=== PATIENT | female | born 1965 | race Caucasian/White ===

== ENCOUNTER → 2021-11-17 | Outpatient (CLI) | payer OTHER ==
[~2021-11-17] MED LIST: AMLO10TA80 MT; ATOR20TA65 MT; CYCL25PO15 MT; GABA-532 MT; HYDR12.54 MT; LOSA50TA41 MT; OMEP20TA2 MT
== END | disposition home or self-care (01) ==
LOC: LAB 12:59
PROVIDERS: ATTEND Neurological Surgery
DX: Z01.812 Encounter for preprocedural laboratory examination (principal); Z20.822 Contact with and (suspected) exposure to COVID-19
CPT/HCPCS: 87426

== ENCOUNTER 2021-11-20 05:29 | Inpatient (IN) | payer MEDICAID, OTHER ==
[2021-11-20] VITALS (46 sets, daily range): BP systolic 73–148; BP diastolic 32–86
[~2021-11-20] VITALS: Ht 167.6 cm; Wt 105.8 kg
[2021-11-20] MEDS ORDERED: SODIUM CHLORIDE 0.9% 1,000 ML IV SCH (05:30)
[2021-11-20] MEDS ORDERED: AMLO10TA80 MT (06:32)
[2021-11-20] MEDS ORDERED: LOSA50TA41 MT (06:32)
[2021-11-20] MEDS ORDERED: ATOR20TA65 MT (06:32)
[2021-11-20] MEDS ORDERED: GABA-532 MT (06:32)
[2021-11-20] MEDS ORDERED: OMEP20TA2 MT (06:32)
[2021-11-20] MEDS ORDERED: LIDOCAINE HCL 1% 20ML VIAL (Pyxis) INJ ONE (06:54)
[2021-11-20] MEDS ORDERED: GENTAMICIN SULF 40MG/ML 2ML VIAL ONE (06:55)
[2021-11-20] MEDS ORDERED: EPINEPHRINE 1:1000 1 MG/ML AMP ONE (06:56)
[2021-11-20] MEDS ORDERED: THROMBIN (BOVINE) 5000 UNITS/VIAL TOP ONE (06:56)
[2021-11-20] MEDS ORDERED: LIDOCAINE HCL/EPINEPHRINE 1%-EPI 1:100,000 30 ML VIAL INFIL ONE (07:24)
[2021-11-20] MEDS ORDERED: HYDROMORPHONE HCL/PF 2MG/ML (OR) ONE (07:25)
[2021-11-20] MEDS ORDERED: ROCURONIUM BROMIDE 10MG/ML VIAL 5ML IV ONE (07:25)
[2021-11-20] MEDS ORDERED: DEXAMETHASONE 4MG/ML 1ML VIAL ONE (07:26)
[2021-11-20] MEDS ORDERED: ALBUMIN HUMAN 25GM/100ML (25%) IV ONE (08:06)
[2021-11-20] MEDS ORDERED: CALCIUM CHLORIDE 1GM/10ML SYR IV ONE ×2 (08:06→09:10)
[2021-11-20] MEDS ORDERED: GLYCOPYRROLATE 0.2 MG/ML 2ML VIAL ONE (09:50)
[2021-11-20] MEDS ORDERED: NEOSTIGMINE METHYLSULFATE 1MG/ML 10 ML VIAL ONE (09:50)
[2021-11-20] MEDS ORDERED: MORPHINE SULFATE 4 MG/ML CPJ (NOT FOR IM USE) IV PRN (10:00)
[2021-11-20] MEDS ORDERED: NALOXONE HCL 0.4MG/ML VIAL IV PRN (10:00)
[2021-11-20] MEDS ORDERED: HYDROMORPHONE PCA 10MG/50ML IV PRN (10:15)
[2021-11-20] MEDS ORDERED: NALOXONE INJ IV PRN (10:15)
[2021-11-20] MEDS: ONDANSETRON INJ IV PRN ×3 (10:52→20:14)
[2021-11-20] MEDS: DEXT 5%/LACTATED RINGERS 1,000 ML IV SCH ×2 (10:52→21:18)
[2021-11-20] MEDS ORDERED: HYDR12.54 MT (11:03)
[2021-11-20] MEDS ORDERED: CYCL25PO15 MT (11:03)
[2021-11-20] MEDS ORDERED: BACITRACIN 15GM TUBE TOP ONE (11:10)
[2021-11-20] MEDS: DEXAMETHASONE 4MG/ML 1ML VIAL IV SCH ×3 (12:02→23:37)
[2021-11-20] MEDS ORDERED: IPRATROPIUM/ALBUTEROL 0.5-3(2.5)MG/3ML NEB HHN PRN (12:30)
[2021-11-20] MEDS: CEFAZOLIN 1000MG PREMIX 50 ML IV SCH ×2 (12:32→21:18)
[2021-11-20] MEDS ORDERED: CEFAZOLIN SODIUM 1000MG/VIAL IV SCH (14:00)
[2021-11-20] MEDS: MORPHINE SULFATE 2 MG/ML CPJ (NOT FOR IM USE) IV PRN ×4 (14:10→22:21)
[2021-11-20] MEDS: DIPHENHYDRAMINE INJ IV PRN ×2 (18:33→22:53)
[2021-11-20] MEDS: NICARDIPINE 100 MG in SODIUM CHLORIDE 0.9% 60 ML IV PRN (23:38)
[2021-11-21] VITALS (86 sets, daily range): BP systolic 87–153; BP diastolic 26–108
[2021-11-21] MEDS: MORPHINE SULFATE 2 MG/ML CPJ (NOT FOR IM USE) IV PRN ×5 (01:36→20:02)
[2021-11-21] MEDS: DIPHENHYDRAMINE INJ IV PRN ×4 (04:12→20:01)
[2021-11-21 05:18] LABS: HEMATOCRIT. 31.2 % (36.0-48.0); HEMOGLOBIN. 10.1 g/dL (12.0-16.0); LYMPHOCYTES % 11.4 % (20.0-50.0); MEAN CORPUSCULAR HEMOGLOBIN 29.4 pg (28.0-32.0); MEAN CORPUSCULAR VOLUME 90.9 fL (81.0-99.0); MEAN PLATELET VOLUME 9.4 fl (7.4-10.4); MONOCYTES % 3.2 % (2.0-8.0); NEUTROPHILS % 85.4 % (40.0-76.0); PLATELET 231 x1000/uL (130-400); RED BLOOD CELL COUNT 3.44 mill/uL (4.2-5.4); RED CELL DISTRIBUTION WIDTH 15.4 % (11.6-14.6)
[2021-11-21] MEDS: CEFAZOLIN 1000MG PREMIX 50 ML IV SCH ×2 (05:41→15:00)
[2021-11-21] MEDS: DEXAMETHASONE 4MG/ML 1ML VIAL IV SCH ×2 (05:41→12:21)
[2021-11-21] MEDS: OMEPRAZOLE 20MG CAPSULE EXTENDED RELEASE PO SCH (05:43)
[2021-11-21] MEDS: NICARDIPINE 100 MG in SODIUM CHLORIDE 0.9% 60 ML IV PRN (05:47)
[2021-11-21] MEDS: DEXT 5%/LACTATED RINGERS 1,000 ML IV SCH ×2 (06:00→16:42)
[2021-11-21 06:06] LABS: CHLORIDE 101 mEq/L (98-107)
[2021-11-21 06:22] LABS: PHOSPHORUS 4.5 mg/dL (2.5-4.9)
[2021-11-21] MEDS: ONDANSETRON INJ IV PRN (08:01)
[2021-11-21] MEDS ORDERED: PROCHLORPERAZINE 10MG/2ML VIAL IM ONE (10:00)
[2021-11-21] MEDS ORDERED: PROCHLORPERAZINE 10MG/2ML VIAL IV PRN (10:00)
[2021-11-21] MEDS: DOCUSATE SODIUM 100MG CAPSULE PO PRN ×2 (10:51→20:01)
[2021-11-21] MEDS: LOSARTAN POTASSIUM 50 MG TABLET PO SCH (16:44)
[2021-11-21] MEDS: AMLODIPINE 10MG TABLET PO SCH (16:44)
[2021-11-21] MEDS: MAGNESIUM/ALUMINUM HYDROXIDE/SIMETHICONE 30ML UDC PO PRN (21:27)
[2021-11-21] MEDS: IPRATROPIUM/ALBUTEROL 0.5-3(2.5)MG/3ML NEB HHN SCH (23:20)
[2021-11-22] VITALS (46 sets, daily range): BP systolic 85–142; BP diastolic 34–87
[2021-11-22] MEDS: DIPHENHYDRAMINE INJ IV PRN ×2 (00:22→08:30)
[2021-11-22] MEDS: MORPHINE SULFATE 2 MG/ML CPJ (NOT FOR IM USE) IV PRN ×6 (00:23→20:40)
[2021-11-22] MEDS: DEXT 5%/LACTATED RINGERS 1,000 ML IV SCH ×2 (02:33→08:32)
[2021-11-22 05:15] LABS: HEMATOCRIT. 35.2 % (36.0-48.0); HEMOGLOBIN. 11.4 g/dL (12.0-16.0); LYMPHOCYTES % 8.1 % (20.0-50.0); MEAN CORPUSCULAR HEMOGLOBIN 29.2 pg (28.0-32.0); MEAN CORPUSCULAR VOLUME 89.8 fL (81.0-99.0); MEAN PLATELET VOLUME 9.4 fl (7.4-10.4); MONOCYTES % 5.8 % (2.0-8.0); NEUTROPHILS % 86.1 % (40.0-76.0); PLATELET 260 x1000/uL (130-400); RED BLOOD CELL COUNT 3.91 mill/uL (4.2-5.4); RED CELL DISTRIBUTION WIDTH 15.4 % (11.6-14.6)
[2021-11-22 05:28] LABS: CHLORIDE 103 mEq/L (98-107)
[2021-11-22] MEDS: OMEPRAZOLE 20MG CAPSULE EXTENDED RELEASE PO SCH (05:33)
[2021-11-22] MEDS: LOSARTAN POTASSIUM 50 MG TABLET PO SCH (08:31)
[2021-11-22] MEDS: AMLODIPINE 10MG TABLET PO SCH (08:31)
[2021-11-22] MEDS: IPRATROPIUM/ALBUTEROL 0.5-3(2.5)MG/3ML NEB HHN SCH (09:15)
[2021-11-22] MEDS: PROCHLORPERAZINE 10MG/2ML VIAL IV PRN (11:39)
[2021-11-22] MEDS ORDERED: AMLODIPINE 5MG TABLET PO SCH (13:08)
[2021-11-22] MEDS: GUAIFENESIN 600MG ER TABLET PO SCH ×2 (15:22→20:30)
[2021-11-22] MEDS: AMLODIPINE 5MG TABLET PO SCH ×2 (17:00→17:34)
[2021-11-22] MEDS: ACETAMINOPHEN 325MG TABLET PO PRN (17:59)
[2021-11-22] MEDS: MAGNESIUM/ALUMINUM HYDROXIDE/SIMETHICONE 30ML UDC PO PRN (20:30)
[2021-11-22] MEDS ORDERED: DIPHENHYDRAMINE 50MG/ML VIAL IV PRN (23:00)
[2021-11-23] MEDS: PROCHLORPERAZINE 10MG/2ML VIAL IV PRN (01:38)
[2021-11-23 04:00] VITALS: BP 105/67
[2021-11-23] MEDS: ACETAMINOPHEN 325MG TABLET PO PRN (04:14)
[2021-11-23] MEDS: DOCUSATE SODIUM 100MG CAPSULE PO PRN (06:38)
[2021-11-23] MEDS: OMEPRAZOLE 20MG CAPSULE EXTENDED RELEASE PO SCH (06:38)
[2021-11-23 08:00] VITALS: BP 109/46
[2021-11-23] MEDS: LOSARTAN POTASSIUM 50 MG TABLET PO SCH (08:45)
[2021-11-23] MEDS: AMLODIPINE 5MG TABLET PO SCH (08:45)
[2021-11-23] MEDS: MORPHINE SULFATE 2 MG/ML CPJ (NOT FOR IM USE) IV PRN ×2 (08:46→12:23)
[2021-11-23] MEDS: DEXT 5%/LACTATED RINGERS 1,000 ML IV SCH (08:52)
[2021-11-23] MEDS: GUAIFENESIN 600MG ER TABLET PO SCH (08:53)
[2021-11-23 12:00] VITALS: BP 95/63
[2021-11-23] MEDS: IPRATROPIUM/ALBUTEROL 0.5-3(2.5)MG/3ML NEB HHN SCH (14:32)
[2021-11-23 14:41] VITALS: BP 95/63
== END 2021-11-23 16:02 | disposition home or self-care (01) | DRG 321 ==
LOC: OR 05:29 → MICUSO 05:30 → 6EST 11-22 22:10
PROVIDERS: ADMIT Neurological Surgery; ATTEND Neurological Surgery
PROC: 0RG2070 Fusion of 2 or more Cervical Vertebral Joints with Autologous Tissue Substitute, Anterior Approach, Anterior Column, Open Approach (ICD-10-PCS; principal; 2021-11-20)
PROC: 0RB30ZZ Excision of Cervical Vertebral Disc, Open Approach (ICD-10-PCS; 2021-11-20)
PROC: 01N10ZZ Release Cervical Nerve, Open Approach (ICD-10-PCS; 2021-11-20)
PROC: 4A11X4G Monitoring of Peripheral Nervous Electrical Activity, Intraoperative, External Approach (ICD-10-PCS; 2021-11-20)
DX: M48.02 Spinal stenosis, cervical region (principal); J96.01 Acute respiratory failure with hypoxia; G82.50 Quadriplegia, unspecified; M50.023 Cervical disc disorder at C6-C7 level with myelopathy; M47.12 Other spondylosis with myelopathy, cervical region; E78.5 Hyperlipidemia, unspecified; I10 Essential (primary) hypertension; J45.909 Unspecified asthma, uncomplicated; K21.9 Gastro-esophageal reflux disease without esophagitis; Z87.891 Personal history of nicotine dependence
CPT/HCPCS: 36415; 71045; 72040; 74018; 76000; 80048; 80076; 83735; 83880; 84100; 84145; 85025; 86850; 86900; 88304; 88311; 93970; 94640; 95863; 95925; 95926; 95928; 95929; 97116; 97162; 97166; 97530; C1713; C1893; J0690; J0780; J1100; J1170; J1200; J1580; J2270; J2405; J2710; J3490; J7050; J7121; P9047; C1762